=== PATIENT | male | born 1970 | race American Indian/Alaskan Native ===

== ENCOUNTER 2020-12-17 19:23 | Emergency (ER) | payer OTHER ==
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
[2020-12-18 00:12] VITALS: BP 140/83
== END 2020-12-18 00:14 | disposition home or self-care (01) ==
LOC: ED 19:23
DX: M25.561 Pain in right knee (principal); M25.562 Pain in left knee; M54.50 Low back pain, unspecified; V49.49XA Driver injured in collision with other motor vehicles in traffic accident, initial encounter; Y93.89 Activity, other specified; Y92.89 Other specified places as the place of occurrence of the external cause; Y99.8 Other external cause status
CPT/HCPCS: 99282

== ENCOUNTER 2021-03-19 18:22 | Emergency (ER) | payer OTHER ==
[2021-03-19] MEDS ORDERED: IBUPROFEN 800 MG TAB PO ONE (23:00)
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
[2021-03-20 01:10] VITALS: BP 141/83
== END 2021-03-20 01:05 | disposition home or self-care (01) ==
LOC: ED 18:22
DX: S39.012A Strain of muscle, fascia and tendon of lower back, initial encounter (principal); F10.20 Alcohol dependence, uncomplicated; X58.XXXA Exposure to other specified factors, initial encounter; Y93.89 Activity, other specified; Y92.89 Other specified places as the place of occurrence of the external cause; Y99.8 Other external cause status
CPT/HCPCS: 72100; 99283